=== PATIENT | female | born 1945 | race Caucasian/White ===

== ENCOUNTER → 2017-04-01 | Outpatient (CLI) | payer MEDICARE, OTHER ==
[2015-09-04 15:04] VITALS: BP 162/70
[~2017-04-01] MED LIST: ACET500T68 PO; ALBU2.5V5 NEB; AMIT25TA PO; AMLO10TA2 PO; ASPI-482 PO; CEPH500T PO; CLON0.1T PO; CLON1PAT2 TD; CLONIDINE TOP; CLOP75TA PO; CYAN10005 PO; CYAN1TAB28 PO; CYCL-331 PO; DICL112S2 TP; DIPH25CA58 PO; EZET10TA18 PO; FLUC50TA3 PO; FLUT9.9S NS; GLYB2.5T2 PO; HYDR-2867 PO; HYDR25TA9 PO; ISOS30TA4 PO; LEVO100V5 PO; LEVO200T5 PO; LINA145C PO; LORA0.5T PO; LOSA100T6 PO; METF500T4 PO; METO100T11 PO; METO100T2 PO; MOXI3DRO2 OP; MULT-651 PO; NYST15CR2 TP; NYST15PO2 TP; OLAN5TAB9 PO; OLME1TAB21 PO; OLME1TAB35 PO; OMEP20CA9 PO; ONDA4TAB7 PO; PANT40TA3 PO; POTA10TA10 PO; SERT100T8 PO; TAPE100T7 PO; VALS1TAB31 PO; [UNRECOGNIZED DRUG - OTHER]; [UNRECOGNIZED DRUG - OTHER] TOP; other
--- NOTE | 2017-04-01 10:26 | CARD ---
APPROVED REPORT EXAM: Two-dimensional and M-mode echocardiogram with Doppler and color Doppler. Other Information Quality : GoodHR: 78bpm Rhythm : NSR INDICATION Valvular heart disease RISK FACTORS Obesity 2D DIMENSIONS RVDd3.2 (2.9-3.5cm)Left Atrium(2D)4.8 (1.6-4.0cm) IVSd1.1 (0.7-1.1cm)Aortic Root(2D)3.0 (2.0-3.7cm) LVDd5.0 (3.9-5.9cm)LVOT Diameter1.9 (1.8-2.4cm) PWd1.1 (0.7-1.1cm)LVDs2.3 (2.5-4.0cm) FS (%) 53.9 %SV101.9 ml LVEF(%)84.6 (>50%) Aortic Valve AoV Peak Sami.236.1cm/sAoV VTI48.3cm AO Peak GR.22.3mmHgLVOT Peak Sami.137.7cm/s LVOT VTI 30.67cmAO Mean GR.12mmHg LAUREANO (VMAX)1.12ir3TVK (VTI)1.87cm2 Mitral Valve MV E Vfbqhtwd449.7cm/sMV E Peak Gr.14mmHg MV DECEL [id number] A Cwscriwg458.0cm/s MV E Mean Gr.5mmHgE/A Ratio0.6 MV A [id number] Pulmonary Valve PV Peak Eakdkfuj98.7cm/sPV Peak Grad.4mmHg Pulmonary Vein S1 Cgubyptl09.8cm/sD2 Cragpamm71.4cm/s LEFT VENTRICLE The left ventricle is normal size. There is mild concentric left ventricular hypertrophy. The left ve ntricular systolic function is normal and the ejection fraction is within normal range. The Ejection Fraction is >70%. There is grossly normal wall motion. Images suboptimal due to body habitus. Transmi tral Doppler flow pattern is Grade I-abnormal relaxation pattern. RIGHT VENTRICLE The right ventricle is normal size. There is normal right ventricular wall thickness. The right ventr icular systolic function is normal. ATRIA The left atrium is mildly dilated. The right atrium size is normal. The interatrial septum is intact with no evidence for an atrial septal defect or patent foramen ovale as noted on 2-D or Doppler imagi ng. AORTIC VALVE The aortic valve is not well visualized. Doppler and Color Flow revealed no significant aortic regurg itation. There is mild valvular aortic stenosis by doppler. Calculated aortic valve area is 1.8 cm2 w ith maximum pressure gradient of 22.0 mmHg and mean pressure gradient of 12.0 mmHg. Visually, the owen ve appears moderately stenotic. MITRAL VALVE The mitral valve is not well visualized. There is no evidence of mitral valve prolapse. There is mild mitral valve stenosis. Calculated mitral valve area is 2.1 cm2 with maximum pressure gradient of 14. 0 mmHg and mean pressure gradient of 5.0 mmHg. Doppler and Color Flow revealed no mitral valve regurg itation noted. TRICUSPID VALVE Doppler and Color Flow revealed no tricuspid valve regurgitation noted. Right ventricular systolic pr essure could not be calculated at exam time. PULMONIC VALVE The pulmonic valve is not well visualized but appears to open well. Doppler and Color Flow revealed n o pulmonic valvular regurgitation. There is no pulmonic valvular stenosis. GREAT VESSELS The aortic root is normal in size. The ascending aorta is normal in size. The IVC is normal in size a nd collapses >50% with inspiration. PERICARDIAL EFFUSION There is no evidence of significant pericardial effusion. Critical Notification Critical Value: No <Conclusion> The left ventricular systolic function is normal and the ejection fraction is within normal range. Th e Ejection Fraction is >70%. There is grossly normal wall motion. Images suboptimal due to body habitus. There is mild valvular aortic stenosis by doppler. Calculated aortic valve area is 1.8 cm2 with maxim um pressure gradient of 22.0 mmHg and mean pressure gradient of 12.0 mmHg. Visually, the valve appea rs moderately stenotic. There is mild mitral valve stenosis. Calculated mitral valve area is 2.1 cm2 with maximum pressure gr adient of 14.0 mmHg and mean pressure gradient of 5.0 mmHg. Technically very difficult study.
== END | disposition home or self-care (01) ==
LOC: ECHO 08:55
PROVIDERS: ATTEND Internal Medicine Cardiovascular Disease
DX: I08.0 Rheumatic disorders of both mitral and aortic valves (principal)
CPT/HCPCS: 93306